=== PATIENT | male | born 1945 | race Caucasian/White ===

== ENCOUNTER 2020-02-28 18:15 | Observation (INO) | payer MEDICARE, SELFPAY ==
[2020-02-28] VITALS (10 sets, daily range): BP systolic 99–179; BP diastolic 50–81; PULSE 72–93; RESP 12–24; TEMP 36.7–37.6; O2SAT 93–97; BMI 24.3
--- NOTE | 2020-02-28 18:25 | DI.RAD.S_ITS ---
PROCEDURE: XR FINGER RT MIN 2V INDICATIONS: finger injury, infection TECHNIQUE: AP hand, 2 views of the right second finger(s) acquired. COMPARISON: None. FINDINGS: Bones: No fractures or dislocations. No suspicious bony lesions. No osseous erosive changes. No periosteal reaction. Severe first MCP joint osteoarthritis. Soft tissues: No suspicious soft tissue calcifications. No soft tissue gas IMPRESSION: No dm evidence of osteomyelitis. Plain film radiographs can be insensitive to osteomyelitis during the initial 15 days of the disease process. If there is clinical concern for osteomyelitis, then three-phase nuclear medicine bone scan should be considered for further evaluation. Dictated by: Halle Alicia MD, PhD on 02/28/2020 at 19:09 Approved by: Halle Alicia MD, PhD on 02/28/2020 at 19:10
[2020-02-28] MEDS: CEFAZOLIN 2 GM/100 ML FROZ.PIGGY IV ×3 (18:45→22:40)
[2020-02-28] MEDS: TET,DIPH,PERTUSS(ACELL),VAC/PF 0.5 ML SYRINGE IM (18:45)
[2020-02-28] MEDS: SODIUM CHLORIDE 0.9% 1,000 ML 125 ML IV (18:46)
--- NOTE | 2020-02-28 18:58 | ED.UPPEXIN ---
HPI - Extremity Injury (Upper) General Chief Complaint: Fever Stated Complaint: infected right finger Time Seen by Provider: 02/28/20 18:18 Source: patient Mode of arrival: Ambulatory Limitations: no limitations History of Present Illness HPI narrative: 74M former smoker with HTN, hyperlipidemia presents with a friend from [facility] with a painful, swollen, right index finger worsening since yesterday. 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 Yesterday he was using a blue prints trimmer for quite some time and denies a specific injury, or laceration, but noticed some swelling and pain of his finger and figured it was just from pulling on the trigger for so long. When he awoke today he felt a bit under the weather and noted that the finger had become swollen and painful with a fluid collection. He attempted to drain the fluid with a sterilized needle at home and a large amount of blood and pus came out. Over the day his finger became more swollen and redness was working to his hand. He developed read streaks up his arm. He denies fever or chills, but feels unwell. He doesn't have a terrible amount of pain, but admits that he has very little sensation and likely wouldn't feel pain. His tetanus will need to be updated. He last ate solids at breakfast time and had some liquids at about 1400. He takes no blood thinners. complaint: injury to: left and finger Onset (ago): day(s) Other Extremity Injury: Left: fingers Other injuries: none Handedness: right Place: home Severity: moderate Relieving factors: none Exacerbating factors: none Context: other Associated symptoms: weakness Treatments prior to arrival: bandage Related Data Home Medications Medication Instructions Recorded Confirmed Adult Low Dose Aspirin 81 mg PO DAILY 02/28/20 02/28/20 atorvastatin 40 mg PO QPM 02/28/20 02/28/20 carvedilol 6.25 mg PO DAILY 02/28/20 02/28/20 lisinopril 5 mg PO DAILY 02/28/20 02/28/20 Allergies Allergy/AdvReac Type Severity Reaction Status Date / Time No Known Drug Allergies Allergy Verified 02/28/20 18:31 Review of Systems Constitutional Constitutional: Denies chills, Reports fatigue, Denies fever(s), Denies frequent falls, Reports lethargy and Reports weakness Eyes Eyes: Denies change in vision, Denies eye discharge, Denies irritation and Denies loss of vision ENT Ears, Nose, Mouth, and Throat: Denies change in voice, Denies dizziness, Denies neck pain, Denies sore throat and Denies throat swelling Cardiovascular Cardiovascular: Denies chest pain, Denies irregular heart rhythm, Denies lightheadedness, Denies palpitations, Denies dyspnea, Denies dyspnea on exertion and Denies orthopnea Respiratory Respiratory: Denies cough, Denies dyspnea, Denies dyspnea on exertion and Denies wheezing Gastrointestinal Gastrointestinal: Denies abdominal pain, Denies change in bowel habits, Denies diarrhea, Denies nausea and Denies vomiting Musculoskeletal Musculoskeletal: Reports joint swelling, Denies neck pain and Denies numbness Integumentary/Breasts Skin/Breast: Denies pruritus, Reports erythema, Denies rash, Reports skin swelling and Denies wounds Neurologic Neurologic: Denies behavioral changes, Denies confusion, Denies dizziness, Denies frequent falls, Denies loss of vision, Denies numbness and Reports weakness Psychiatric Psychiatric: Denies anxiety, Denies behavioral changes, Denies confusion, Denies depression, Denies homicidal ideation and Denies suicidal ideation Endocrine Endocrine: Reports fatigue, Denies flushing and Denies palpitations Hematologic/Lymphatic Hematologic/Lymphatic: Denies easy bruising Allergic/Immunologic Allergic/Immunologic: Denies urticaria, Denies throat swelling and Denies wheezing Patient History Social History household members: significant other Smoking Status: Former smoker alcohol intake: current Smoking Status: Former smoker alcohol intake frequency: 0-2 drinks per day Substance Use Type: does not use Exam Narrative Exam Narrative: GENERAL: [74] year old patient appears stated age. Well-nourished, well-developed patient, in mild distress. HEAD: Atraumatic. Normocephalic. EYES: Pupils equal round and reactive. Extraocular motions intact. No scleral icterus. No injection or drainage. ENT: Nose without bleeding, purulent drainage. Throat without erythema, tonsillar hypertrophy or exudate. Airway patent. NECK: Trachea midline. Non tender CARDIOVASCULAR: Regular rate and rhythm without murmurs, gallops, or rubs. RESPIRATORY: Clear to auscultation. Breath sounds equal bilaterally. No wheezes, rales, or rhonchi. GASTROINTESTINAL: Abdomen soft, non-tender, nondistended. EXTREMITIES: Right index finger significantly swollen, held in flexion, tender on flexor surface. Erythema of entire finger, extending to 2nd MCP and dorsum of hand with associated lymphangitis. No swelling of palmar surface. There is a 2cm area of flattened bullae on volar surface, no obvious break in skin BACK: Nontender without deformity or crepitance. No flank tenderness. NEURO: AOx3. SKIN: No rash or erythema of visible areas Initial Vital Signs Initial Vital Signs: Vital Signs Temperature 99.6 F 02/28/20 18:20 Pulse Rate 84 02/28/20 18:20 Respiratory Rate 18 02/28/20 18:20 Blood Pressure 179/81 H 02/28/20 18:20 Pulse Oximetry 96 02/28/20 18:20 Course Orders Ordered: ED Orders 02/28/20 18:25 XR finger RT min 2V Stat 02/28/20 19:05 Basic Metabolic Panel Stat C-Reactive Protein Quant Stat Complete Blood Count AUTO DIFF Stat 02/28/20 19:40 Blood Culture Stat Atorvastatin Calcium (Lipitor) 40 mg PO QPM [facility] Carvedilol (Coreg) 6.25 mg PO DAILY [facility] Docusate Sodium (Colace) 100 mg PO BID [facility] Last Admin: 02/28/20 22:40 Dose: Not Given Documented by: SHAZIA Hydromorphone HCl (Dilaudid) 0.2 mg IV Q1H PRN PRN Reason: Pain, Severe (7-10) Cefazolin Sodium/Dextrose (Ancef) 2 gm in 100 mls @ 200 mls/hr IV Q8H [facility] Stop: 02/29/20 06:21 Last Infusion: 02/28/20 23:10 Dose: 0 mls/hr Documented by: Admin: 02/28/20 22:40 Dose: 200 mls/hr Documented by: SHAZIA Sodium Chloride (Normal Saline 0.9%) 250 mls @ 21 mls/hr IV Q24H PRN PRN Reason: Flush Lisinopril (Zestril) 5 mg PO DAILY [facility] Naloxone HCl (Narcan) 0.2 mg IV Q2MIN PRN PRN Reason: Opiate Reversal Non-Formulary Medication (Adult Low Dose Aspirin) 81 mg PO DAILY [facility] Ondansetron HCl (Zofran Odt) 4 mg PO Q4HR PRN PRN Reason: Nausea And Vomiting Oxycodone HCl (Percolone) 5 mg PO Q3HR PRN PRN Reason: Pain, Moderate (4-6) Discontinued Medications Bupivacaine HCl (Sensorcaine 0.5% (Pf)) 10 ml INJ NOW ONE Stop: 02/28/20 21:06 Last Admin: 02/28/20 21:05 Dose: 5 ml Documented by: GLADIS Diphtheria/Tetanus/Acell Pertussis (Adacel) 0.5 ml IM .ONCE ONE Stop: 02/28/20 18:26 Last Admin: 02/28/20 18:45 Dose: 0.5 ml Documented by: LIANE Fentanyl (Sublimaze) 0 mcg IV Q5M PRN PRN Reason: Pain, Moderate (4-6) Sodium Chloride (Normal Saline 0.9%) 1,000 mls @ 125 mls/hr IV CONT SOCORRO Last Infusion: 02/28/20 19:53 Dose: 0 mls/hr Documented by: Infusion: 02/28/20 19:29 Dose: 125 mls/hr Documented by: Admin: 02/28/20 18:46 Dose: 125 mls/hr Documented by: LIANE Cefazolin Sodium/Dextrose (Ancef) 2 gm in 100 mls @ 200 mls/hr IV NOW ONE Stop: 02/28/20 18:54 Last Infusion: 02/28/20 21:40 Dose: 200 mls/hr Documented by: Admin: 02/28/20 19:40 Dose: 200 mls/hr Documented by: Admin: 02/28/20 19:27 Dose: Not Given Documented by: LIANE Lactated Ringer's (Lactated Ringers) 1,000 mls @ 42 mls/hr IV CONT SOCORRO Last Infusion: 02/28/20 21:31 Dose: 0 mls/hr Documented by: Admin: 02/28/20 20:06 Dose: 42 mls/hr Documented by: LEROY Ondansetron HCl (Zofran) 4 mg IV NOW PRN PRN Reason: Nausea And Vomiting Consultations Consultation #1: early call to orthopedics given concern for early flexor tenosynovitis. Dr. Granger will see and take to OR at 2000. Vital Signs Vital signs: Vital Signs - 8 hr 02/28/20 18:20 Temperature 99.6 F Pulse Rate 84 Respiratory Rate 18 Blood Pressure 179/81 H Pulse Oximetry 96 MDM - Extremity Injury (Upper) Lab Data Result diagrams: 02/28/20 19:05 02/28/20 19:05 Labs: Lab Results 02/28/20 Range/Units 18:45 COVID-19 PCR Negative (Negative) Discharge Plan Departure Patient Disposition: Admitted to Surgery Clinical Impression: Flexor tenosynovitis of finger Discharge Date/Time: 02/28/20 19:35 Admit Date/Time: 02/28/20 19:02 Admit Provider: Neda Granger
[2020-02-28 19:16] LABS: Add Manual Diff / Slide Review NO; Basophils Absolute Auto 0 /uL (0-100); Basophils Percent Auto 0.4 % (0-2); Eosinophils Absolute Auto 0 /uL (0-450); Eosinophils Percent Auto 0.1 % (2-4); Hematocrit 42.6 % (41-53); Hemoglobin 14.6 g/dL (13.5-17.5); Lymphocytes Absolute Auto 900 /uL (1100-4500); Lymphocytes Percent Auto 7.8 % (25-40); Mean Corpuscular HGB Conc 34.4 % (30-36); Mean Corpuscular Hemoglobin 31.5 PG (26-34); Mean Corpuscular Volume 91.6 fL (80-100); Monocytes Absolute Auto 1400 /uL (0-900); Monocytes Percent Auto 11.7 % (3-14); Neutrophils Absolute Auto 9600 /uL (1500-7000); Platelet Count 170 X10^3/uL (150-400); Red Blood Cell Count 4.65 X10^6/uL (4.5-5.9); Red Cell Distribution Width 14.2 % (11.6-14.8)
[2020-02-28 19:31] LABS: BUN Creatinine Ratio 16.9 (6-22); Blood Urea Nitrogen 15 mg/dL (9-20); Calcium 9.1 mg/dL (8.4-10.2); Carbon Dioxide 25 mmol/L (22-32); Chloride 101 mmol/L (98-107); Estimated Glomerular Filt Rate > 60.0 mL/min (>60); Glucose 132 mg/dL (80-110); HEMOLYSIS < 15 (0-50); Potassium 4.1 mmol/L (3.4-5.1); Sodium 133 mmol/L (137-145)
--- NOTE | 2020-02-28 19:36 | PC.NURSE ---
2nd culture drawn by Cgay
[2020-02-28 19:49] LABS: COVID19 -Nasal RAPID Negative (Negative)
[2020-02-28] MEDS: LACTATED RINGERS 1,000 ML 42 ML IV (20:06)
--- NOTE | 2020-02-28 20:14 | SUR.HOLD ---
1939) received report from ER nurse regarding patient's visit to ER. Patient is GCS 15 and ambulatory with minimal assistance. Right hand is red, warm to touch, with streaking noted up the forearm. Slight swelling noted. Patient arrived to [facility] today from [facility].
--- NOTE | 2020-02-28 20:15 | P.HP_ITS ---
History of Present Illness History of Present Illness Date Patient Seen: 02/28/20 Time Patient Seen: 20:15 Date of Onset of Symptoms: 02/27/20 Chief complaint: infected right finger Narrative: Mr. Eaton is a 74 yo M with 2 day hx of right index finger swelling after repetitive trigger pull while using a mechanical device at home. He start ed to have increased swelling and a large fluid filled blister/abscess formed on the side of his index finger. He used a needle to puncture the abscess and he says significant amount of purulent material was drained from it. His finger continue to swell and throb. He presented to the ED for additional work up. Patient History Family & Social History Social History: household members significant other Prior Living Arrangements House Safety & Behavioral: Feels Safe in Current Yes Environment Tobacco & Substance use: Smoking Status Former smoker alcohol intake frequency 0-2 drinks per day Substance Use Type does not use Meds Home Medications and Allergies Home Medications Medication Instructions Recorded Confirmed Type Adult Low Dose Aspirin 81 mg PO DAILY 02/28/20 02/28/20 History atorvastatin 40 mg PO QPM 02/28/20 02/28/20 History carvedilol 6.25 mg PO DAILY 02/28/20 02/28/20 History lisinopril 5 mg PO DAILY 02/28/20 02/28/20 History Allergies Allergy/AdvReac Type Severity Reaction Status Date / Time No Known Drug Allergies Allergy Verified 02/28/20 18:31 Review of Systems Musculoskeletal Comments: Right index finger with significant swelling and redness. THe finger is slightly flexed. When passively extended, it causes severe pain to the palm side of the finger. There is a draining blister/abscess on the ulnar side of his infex finger at the level of DIP. 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 Exam Vital Signs (past 8 hours): - 02/28/20 18:20 02/28/20 19:13 02/28/20 19:40 Temperature 99.6 F 99.2 F Pulse Rate 84 74 76 Respiratory Rate 18 24 20 Blood Pressure 179/81 H 135/72 Blood Pressure [Left Arm] 131/64 Pulse Oximetry 96 94 95 Oxygen Delivery Method Room Air Objective Labs Result Diagrams: 02/28/20 19:05 02/28/20 19:05 Labs: Laboratory Results - last 24 hr 02/28/20 02/28/20 02/28/20 18:45 19:05 19:05 WBC 12.0 H RBC 4.65 Hgb 14.6 Hct 42.6 MCV 91.6 MCH 31.5 MCHC 34.4 RDW 14.2 Plt Count 170 Neut % (Auto) 80.0 H Lymph % (Auto) 7.8 L [place] % (Auto) 11.7 Eos % (Auto) 0.1 L Baso % (Auto) 0.4 Neut # (Auto) 9600 H Lymph # (Auto) 900 L [place] # (Auto) 1400 H Eos # (Auto) 0 Baso # (Auto) 0 Sodium 133 L Potassium 4.1 Chloride 101 Carbon Dioxide 25 BUN 15 Creatinine 0.89 Estimated GFR > 60.0 BUN/Creatinine Ratio 16.9 Glucose 132 H Calcium 9.1 C-Reactive Protein 7.0 H COVID-19 PCR Negative Assessment & Plan Assessment & Plan narrative: 2 day hx of of worsening right index finger swelling, pain and pain on the volar/palm side of his finger/hand with progressive red streak on the volar part of his forearm and traveling more proximally. Patient has clinical diagnosis of infected flextor tenosynovitis with progressive worsening of his symptoms. I discussed my findings with him. I recommended emergent I&D of his flexor tendon sheath. He understands and will proceed emergently.
--- NOTE | 2020-02-28 20:53 | SUR.OPER ---
Supine on padded OR bed, head on pillow, left arms secured on padded arm boards at <90 degrees abduction, right arm on arm table under control of surgeon, legs uncrossed, safety belt at thigh, tape over blanket over lower legs.
[2020-02-28] MEDS: BUPIVACAINE 0.5% (PF) VIAL 10 ML INJ (21:05)
--- NOTE | 2020-02-28 21:19 | P.OP_ITS ---
Operative Date/Time/Diagnoses Date of procedure: 02/28/20 Time of procedure: 20:19 Pre-op diagnosis: 1. Right infex finger flexor tenosynovitis Post-op diagnosis: same Procedure & Clinicians Procedure: 1. Right index finger flexor sheath open debridement 2. Closure of wound Same procedure as scheduled: Yes Indications: Mr. Eaton is a 74 yo M with 2 days hx of worsening swelling, increased pain with flexion in the volar side of his finger and palm of his hand. After discussing risks and benefits of surgery, pt was taken to surgery sadie rgently for I&D. Surgeon: Neda Granger Click Yes if Unassisted: Yes Anesthesia Type: General Operative Notes Closure Type: primary Estimated Blood Loss (mL): 2 Blood products transfused: none Tourniquet time (min): 25 Procedure in detail: After informed consent was obtained and placed in the chart, patient's surgical site was marked. Patient was taken to the operating room and placed in a supine position. A tourniquet was placed on patient's right upper arm. Arm table was attached to the operating bed patient's right arm was placed onto the arm table. Patient's right hand was prepped and draped in the sterile fashion from the fingertips all the way to his upper arm. Time-out was performed and this time. Tourniquet was inflated to 250 mm mercury. Surgical marker was used to nallely out the patient's incision on his right index finger. A zigzag volar approach was performed with incision lines crossing his flexor crease add or greater than 90 degree angle to minimize risk of skin corner necrosis. The incision started from just distal to the DIP flexor crease and extended towards the MCP flexor crease and exposing his flexor tendon sheath to his right index finger. Was significant amount of purulent material was in his subcutaneous layer from material leaking out of the flexor sheath. Culture swab was used to take cultures from the wound for both Gram stain culture and sensitivity. The flexor sheath itself also found to have defects on the volar aspect connecting to the subcutaneous area of pururlent material collection. After exposing the proximal and distal and of the flexor sheaths to his index finger, a Angiocath was used to irrigate the flexor sheath copiously with sterile normal saline. The proximal portion of his flexor tendon sheath was explored no additional pure no material was found proximal to his palmar crease. Unhealthy tissue including skin subcutaneous tissue and flexor tendon sheath as well as ligaments was e xcised in order to prevent recurrence of his infection. The skin was closed with 3-0 nylon suture a running fashion. Xeroform and sterile dressing was applied the patient's incision. Patient's right hand including the finger was placed into a sterile dressing. Tourniquet was then deflated at this time. Patient will be admitted to the inpatient hospital placed on IV antibiotics while wait for his culture results return. Patient will be discharged on oral antibiotics once his culture and sensitivity returns from the lab. Complications: none Post-operative Condition: stable Disposition: observation Plan for aftercare: Admit to observation for IV antibiotics
--- NOTE | 2020-02-28 23:12 | PC.NURSE ---
some erythema to his RUE. dressing cdi. RUE elevated. he had some chicken noodle soup for dinner. pt tolerated well. no n/v. safety check. call light in reach. bed alarm active. oriented pt to the room.
[2020-02-29] VITALS: BP 112/63; PULSE 74; RESP 18; TEMP 37.4; O2SAT 98
[2020-02-29] MEDS: CEFAZOLIN 2 GM/100 ML FROZ.PIGGY IV (05:16)
[2020-02-29] MEDS: IBUPROFEN 400 MG TABLET PO (05:26)
--- NOTE | 2020-02-29 06:09 | PC.NURSE ---
Pt doing well. Minimal pain, given advil. Redness to arm is subsiding from previous border. Able to wiggle fingers. CMS+
[2020-02-29 06:18] VITALS: BP 122/66; PULSE 78; RESP 16; TEMP 37.1; O2SAT 96
[2020-02-29 07:56] VITALS: BP 122/66
[2020-02-29] MEDS: lisinopriL 5 MG TABLET PO (07:56)
[2020-02-29 07:57] VITALS: BP 122/66
[2020-02-29] MEDS: carvediloL 6.25 MG TABLET PO (07:57)
[2020-02-29 08:05] VITALS: BP 133/72; PULSE 70; RESP 16; TEMP 36.9; O2SAT 96
--- NOTE | 2020-02-29 11:40 | P.PN_ITS ---
Exam Vital Signs (past 8 hours): - 02/29/20 06:18 02/29/20 07:56 02/29/20 07:57 Temperature 98.8 F Pulse Rate 78 Respiratory Rate 16 Blood Pressure 122/66 122/66 122/66 Pulse Oximetry 96 02/29/20 08:05 Temperature 98.5 F Pulse Rate 70 Respiratory Rate 16 Blood Pressure 133/72 Pulse Oximetry 96 Oxygen Delivery Method Room Air Oxygen Flow Rate 0 Objective Labs Result Diagrams: 02/28/20 19:05 02/28/20 19:05 Labs: Laboratory Results - last 24 hr 02/28/20 02/28/20 02/28/20 18:45 19:05 19:05 WBC 12.0 H RBC 4.65 Hgb 14.6 Hct 42.6 MCV 91.6 MCH 31.5 MCHC 34.4 RDW 14.2 Plt Count 170 Neut % (Auto) 80.0 H Lymph % (Auto) 7.8 L [place] % (Auto) 11.7 Eos % (Auto) 0.1 L Baso % (Auto) 0.4 Neut # (Auto) 9600 H Lymph # (Auto) 900 L [place] # (Auto) 1400 H Eos # (Auto) 0 Baso # (Auto) 0 Sodium 133 L Potassium 4.1 Chloride 101 Carbon Dioxide 25 BUN 15 Creatinine 0.89 Estimated GFR > 60.0 BUN/Creatinine Ratio 16.9 Glucose 132 H Calcium 9.1 C-Reactive Protein 7.0 H COVID-19 PCR Negative Assessment & Plan Assessment & Plan narrative: POD#1 s/p I&D of right index finger flexor tenosynovitis. Patient is feeling well. Finger is well perfused. Will discharge today with oral antibiotics. Follow up in 2 weeks.
[2020-02-29 11:55] VITALS: BP 103/57; PULSE 56; RESP 16; TEMP 36.8; O2SAT 96
--- NOTE | 2020-02-29 12:43 | PC.NURSE ---
Addendum entered by Katarina Nelson R.N. 02/29/20 13:38: Pt out via w/c by [employer] to [employer]i with all belongings. Original Note: Pt is dressed and ready for discharge home on the [facility]. IV has been removed. Went over d/c instructions with Pt-discussed d/c meds, time of last dose, reviewed stroke education, s/s of infection and when to call MD. Pt denies further questions and will be taken out to [employer] at 1335 as requested by Pt.
--- NOTE | 2020-02-29 16:06 | CM.DANOTE ---
Discharge Planning/Care Management DCP: assessment: case received, EMR reviewed. Discussed in Team Rounds. Pt is a 74 year old male who admitted last evening to Surgeon: Dr. Granger He was taken urgently to surgery later in evening for an open debridement: infected R finger Payer: [employer] PCP: listed as Dr. White Admission status: OBS: per KEL Morris Pt lives on [address]. Planned to check in later with pt to see if anything needed for d/c. A check in showed that Dr. Granger did see and ok'd him for a d/c to home setting and on oral anticitics. He left for [place] to [place] by [employer] taxi/part of [employer] transport services at 1335. No d/c needs for CM/DCPlanning were identified by the care team members. CM Discharge Assessment Start: 02/29/20 16:04 Freq: Status: Active Protocol: Document 02/29/20 16:04 IT (Rec: 02/29/20 16:05 IT [id number]) Discharge Planning Assessment Advance Directives? Yes History Provided By Medical Record Prior Living Arrangements House Household Members significant other Comment Emerald Grider Independent with ADL's Yes Is patient alert and oriented? Yes Review Status In Process
== END 2020-02-29 13:39 | disposition home or self-care (01) ==
LOC: ED 18:35 → AC 19:03
PROVIDERS: Admitting Provider Orthopaedic Surgery Orthopaedic Surgery of the Spine; Emergency Provider Emergency Medicine; Family Provider Family Medicine; PCP Family Medicine; Referring Provider Emergency Medicine; Visit Provider Orthopaedic Surgery Orthopaedic Surgery of the Spine
PROC: (CPT 26020; principal; 2020-02-28 19:50)
DX: M65.141 Other infective (teno)synovitis, right hand (principal); R50.9 Fever, unspecified; I25.10 Atherosclerotic heart disease of native coronary artery without angina pectoris; I10 Essential (primary) hypertension; Z95.1 Presence of aortocoronary bypass graft; Z11.59 Encounter for screening for other viral diseases
CPT/HCPCS: 26020; 36415; 73140; 80048; 85025; 86140; 87040; 87070; 87075; 87077; 87147; 87186; 87205; 87635; 90471; 96361; 96365; 99284; G0378; 90715; J0690; J2405; J2704; J3010

== ENCOUNTER → 2021-10-13 10:18 | Outpatient (CLI) | payer MEDICARE, SELFPAY ==
[2020-02-28 22:01] VITALS: BMI 24.3
[2021-10-13 18:51] LABS: Add Manual Diff / Slide Review NO; Basophils Absolute Auto 0 /uL (0-100); Basophils Percent Auto 1.1 % (0-2); Eosinophils Absolute Auto 100 /uL (0-450); Hematocrit 45.3 % (41-53); Hemoglobin 15.4 g/dL (13.5-17.5); Lymphocytes Absolute Auto 1200 /uL (1100-4500); Lymphocytes Percent Auto 29.8 % (25-40); Mean Corpuscular HGB Conc 34.1 % (30-36); Mean Corpuscular Hemoglobin 31.2 PG (26-34); Mean Corpuscular Volume 91.6 fL (80-100); Monocytes Absolute Auto 600 /uL (0-900); Monocytes Percent Auto 14.9 % (3-14); Neutrophils Absolute Auto 2100 /uL (1500-7000); Neutrophils Percent Auto 52.2 % (50-75); Platelet Count 173 X10^3/uL (150-400); Red Blood Cell Count 4.95 X10^6/uL (4.5-5.9); Red Cell Distribution Width 14.1 % (11.6-14.8); White Blood Cell Count 4.1 X10^3/uL (4.5-11.0)
[2021-10-13 18:54] LABS: HEMOLYSIS 26 (0-50)
[2021-10-13 19:01] LABS: Alanine Aminotransferase 18 IU/L (<50); Albumin 4.1 g/dL (3.5-5.0); Albumin Globulin Ratio 1.5 (1.0-2.8); Alkaline Phosphatase 66 U/L (38-126); Aspartate Aminotransferase 30 IU/L (17-59); Bilirubin Total 0.9 mg/dL (0.2-1.3); Blood Urea Nitrogen 18 mg/dL (9-20); Calcium 9.6 mg/dL (8.4-10.2); Carbon Dioxide 31 mmol/L (22-32); Chloride 104 mmol/L (98-107); Cholesterol 180 mg/dL (140-199); Estimated Glomerular Filt Rate > 60.0 mL/min (>60); Globulin 2.7 g/dL (1.7-4.1); Glucose 98 mg/dL (80-110); HDL Cholesterol 102 mg/dL (40-60); LDL Cholesterol Calculated 58 mg/dL (<100); Potassium 4.9 mmol/L (3.4-5.1); Sodium 139 mmol/L (137-145); Total Protein 6.8 g/dL (6.3-8.2); Triglycerides 100 mg/dL (35-150)
[2021-10-13 19:33] LABS: Prostate Specific Antigen 0.447 ng/mL (0.10-4.00)
== END ==
PROVIDERS: Family Provider Family Medicine; PCP Family Medicine; Visit Provider Physician Assistant
DX: Z12.5 Encounter for screening for malignant neoplasm of prostate (principal); I10 Essential (primary) hypertension; Z12.11 Encounter for screening for malignant neoplasm of colon
CPT/HCPCS: 80053; 80061; 84153; 85025; G0103

== ENCOUNTER → 2022-04-23 10:01 | Outpatient (CLI) | payer MEDICARE, SELFPAY ==
[2020-02-28 22:01] VITALS: BMI 24.3
[2022-04-23 20:42] LABS: Add Manual Diff / Slide Review NO; Basophils Absolute Auto 0 /uL (0-100); Basophils Percent Auto 0.8 % (0-2); Eosinophils Absolute Auto 100 /uL (0-450); Eosinophils Percent Auto 1.5 % (2-4); Hematocrit 44.5 % (41-53); Hemoglobin 14.9 g/dL (13.5-17.5); Lymphocytes Absolute Auto 1100 /uL (1100-4500); Lymphocytes Percent Auto 22.5 % (25-40); Mean Corpuscular HGB Conc 33.5 % (30-36); Mean Corpuscular Hemoglobin 30.8 PG (26-34); Mean Corpuscular Volume 91.9 fL (80-100); Monocytes Absolute Auto 700 /uL (0-900); Monocytes Percent Auto 13.4 % (3-14); Neutrophils Absolute Auto 3000 /uL (1500-7000); Neutrophils Percent Auto 61.8 % (50-75); Platelet Count 201 X10^3/uL (150-400); Red Blood Cell Count 4.84 X10^6/uL (4.5-5.9); Red Cell Distribution Width 14.2 % (11.6-14.8); White Blood Cell Count 4.9 X10^3/uL (4.5-11.0)
[2022-04-23 21:27] LABS: HIV 1 & 2 Ab/Ag 4th Gen Combo NEGATIVE (NEGATIVE); Hep C Virus Ab w/Reflex Quant NEGATIVE s/c (NEGATIVE)
[2022-04-26 05:54] LABS: Chlamydia trachomatis NAA Negative (Negative); Neisseria gonorrhoeae NAA Negative (Negative)
== END ==
PROVIDERS: Family Provider Family Medicine; PCP Physician Assistant; Visit Provider Family Medicine
DX: I10 Essential (primary) hypertension (principal); Z11.3 Encounter for screening for infections with a predominantly sexual mode of transmission; D72.819 Decreased white blood cell count, unspecified
CPT/HCPCS: 85025; 86803; 87389; 87491; 87591

== ENCOUNTER → 2022-11-04 13:03 | Outpatient (CLI) | payer MEDICARE, MEDICAID, SELFPAY ==
[2020-02-28 22:01] VITALS: BMI 24.3
[2022-11-04 19:31] LABS: Add Manual Diff / Slide Review NO; Basophils Absolute Auto 100 /uL (0-100); Eosinophils Absolute Auto 200 /uL (0-450); Eosinophils Percent Auto 3.4 % (2-4); Lymphocytes Absolute Auto 1500 /uL (1100-4500); Lymphocytes Percent Auto 26.4 % (25-40); Mean Corpuscular HGB Conc 33.2 % (30-36); Mean Corpuscular Hemoglobin 30.3 PG (26-34); Mean Corpuscular Volume 91.2 fL (80-100); Monocytes Absolute Auto 600 /uL (0-900); Monocytes Percent Auto 9.8 % (3-14); Neutrophils Absolute Auto 3400 /uL (1500-7000); Neutrophils Percent Auto 59.4 % (50-75); Platelet Count 205 X10^3/uL (150-400); Red Blood Cell Count 4.61 X10^6/uL (4.5-5.9); Red Cell Distribution Width 14.2 % (11.6-14.8); White Blood Cell Count 5.7 X10^3/uL (4.5-11.0)
[2022-11-04 19:37] LABS: Alanine Aminotransferase 20 IU/L (<50); Albumin 3.7 g/dL (3.5-5.0); Albumin Globulin Ratio 1.4 (1.0-2.8); Alkaline Phosphatase 62 U/L (38-126); Aspartate Aminotransferase 25 IU/L (17-59); BUN Creatinine Ratio 20.8 (6-22); Bilirubin Total 0.6 mg/dL (0.2-1.3); Blood Urea Nitrogen 20 mg/dL (9-20); Calcium 9.2 mg/dL (8.4-10.2); Carbon Dioxide 31 mmol/L (22-32); Chloride 100 mmol/L (98-107); Estimated Glomerular Filt Rate > 60 mL/min (>60); Globulin 2.6 g/dL (1.7-4.1); Glucose 79 mg/dL (80-110); HEMOLYSIS < 15 (0-50); Potassium 4.9 mmol/L (3.4-5.1); Sodium 138 mmol/L (137-145); Total Protein 6.3 g/dL (6.3-8.2)
[2022-11-04 20:07] LABS: Prostate Specific Antigen Scrn 0.577 ng/mL (0.1-4.0)
== END ==
PROVIDERS: Family Provider Family Medicine; PCP Physician Assistant; Visit Provider Physician Assistant
DX: G62.9 Polyneuropathy, unspecified (principal); Z12.5 Encounter for screening for malignant neoplasm of prostate; R05.2 Subacute cough
CPT/HCPCS: 80053; 85025; G0103

== ENCOUNTER → 2023-12-14 09:31 | Outpatient (CLI) | payer MEDICARE, MEDICAID, SELFPAY ==
[2020-02-28 22:01] VITALS: BMI 24.3
[2023-12-14 19:08] LABS: Add Manual Diff / Slide Review NO; Basophils Absolute Auto 0 /uL (0-100); Basophils Percent Auto 0.9 % (0-2); Eosinophils Absolute Auto 100 /uL (0-450); Eosinophils Percent Auto 2.9 % (2-4); Hematocrit 41.8 % (41-53); Hemoglobin 14.1 g/dL (13.5-17.5); Lymphocytes Absolute Auto 1400 /uL (1100-4500); Lymphocytes Percent Auto 30.3 % (25-40); Mean Corpuscular HGB Conc 33.7 % (30-36); Mean Corpuscular Hemoglobin 31.3 PG (26-34); Mean Corpuscular Volume 92.9 fL (80-100); Monocytes Absolute Auto 700 /uL (0-900); Monocytes Percent Auto 15.4 % (3-14); Neutrophils Absolute Auto 2300 /uL (1500-7000); Neutrophils Percent Auto 50.5 % (50-75); Platelet Count 167 X10^3/uL (150-400); Red Cell Distribution Width 13.8 % (11.6-14.8); White Blood Cell Count 4.5 X10^3/uL (4.5-11.0)
[2023-12-14 19:32] LABS: Alanine Aminotransferase 20 IU/L (<50); Albumin 3.8 g/dL (3.5-5.0); Albumin Globulin Ratio 1.5 (1.0-2.8); Alkaline Phosphatase 60 U/L (38-126); Aspartate Aminotransferase 35 IU/L (17-59); BUN Creatinine Ratio 24.8 (6-22); Blood Urea Nitrogen 25 mg/dL (9-20); Calcium 9.4 mg/dL (8.4-10.2); Carbon Dioxide 31 mmol/L (22-32); Chloride 104 mmol/L (98-107); Cholesterol 159 mg/dL (140-199); Estimated Glomerular Filt Rate > 60 mL/min (>60); Globulin 2.6 g/dL (1.7-4.1); Glucose 104 mg/dL (80-110); HDL Cholesterol 69 mg/dL (40-60); HEMOLYSIS < 15 (0-50); LDL Cholesterol Calculated 78 mg/dL (<100); Potassium 4.9 mmol/L (3.4-5.1); Sodium 136 mmol/L (137-145); Total Protein 6.4 g/dL (6.3-8.2); Triglycerides 61 mg/dL (35-150)
[2023-12-14 19:57] LABS: Prostate Specific Antigen Scrn 0.715 ng/mL (0.1-4.0)
[2023-12-14 19:59] LABS: TSH w/ Reflex to FT4 1.22 uIU/mL (0.47-4.68)
== END ==
PROVIDERS: Family Provider Family Medicine; PCP Physician Assistant Medical; Visit Provider Physician Assistant Medical
DX: Z12.5 Encounter for screening for malignant neoplasm of prostate (principal); G62.9 Polyneuropathy, unspecified; E78.00 Pure hypercholesterolemia, unspecified; I10 Essential (primary) hypertension; R63.4 Abnormal weight loss
CPT/HCPCS: 80053; 80061; 84443; 85025; G0103

== ENCOUNTER → 2023-12-24 11:05 | Outpatient (CLI) | payer MEDICARE, MEDICAID, SELFPAY ==
[2020-02-28 22:01] VITALS: BMI 24.3
--- NOTE | 2023-12-24 11:08 | DI.RAD.S_ITS ---
PROCEDURE: XR CHEST 2V INDICATIONS: Cough, evaluate for pneumonia TECHNIQUE: 2 views of the chest were acquired. COMPARISON: [facility] ([place] CR, XR CHEST 2V, 10/23/2022, 15:30. FINDINGS: Surgical changes and devices: Sternotomy. Lungs and pleura: Lungs are clear. No pleural effusions or pneumothorax. Mediastinum: Mediastinal contours are normal. Heart size is normal. Bones and chest wall: No suspicious bony abnormalities. Soft tissues appear unremarkable. IMPRESSION: No acute cardiopulmonary abnormality is seen. Dictated by: Gulshan Crane M.D. on 12/24/2023 at 12:54 Approved by: Gulshan Crane M.D. on 12/24/2023 at 12:55
== END ==
PROVIDERS: Family Provider Family Medicine; Referring Provider Internal Medicine Critical Care Medicine; Visit Provider Internal Medicine Critical Care Medicine
DX: J41.8 Mixed simple and mucopurulent chronic bronchitis (principal); R05.3 Chronic cough
CPT/HCPCS: 71046; 99214

== ENCOUNTER → 2024-12-22 08:36 | Outpatient (CLI) | payer MEDICARE, MEDICAID, SELFPAY ==
[2020-02-28 22:01] VITALS: BMI 24.3
[2024-12-22 19:02] LABS: Alanine Aminotransferase 22 IU/L (<50); Albumin 4.6 g/dL (3.5-5.0); Albumin Globulin Ratio 1.8 (1.0-2.8); Alkaline Phosphatase 62 U/L (38-126); Aspartate Aminotransferase 34 IU/L (17-59); BUN Creatinine Ratio 18.8 (6-22); Bilirubin Total 1.2 mg/dL (0.2-1.3); Blood Urea Nitrogen 21 mg/dL (9-20); Calcium 10.1 mg/dL (8.4-10.2); Carbon Dioxide 29 mmol/L (22-32); Chloride 102 mmol/L (98-107); Cholesterol 198 mg/dL (140-199); Estimated Glomerular Filt Rate > 60 mL/min (>60); Globulin 2.6 g/dL (1.7-4.1); Glucose 105 mg/dL (80-110); HDL Cholesterol 91 mg/dL (40-60); HEMOLYSIS < 15 (0-50); LDL Cholesterol Calculated 87 mg/dL (<100); Potassium 4.5 mmol/L (3.4-5.1); Sodium 139 mmol/L (137-145); Total Protein 7.2 g/dL (6.3-8.2); Triglycerides 101 mg/dL (35-150)
[2024-12-22 19:27] LABS: Prostate Specific Antigen Scrn 0.663 ng/mL (0.1-4.0)
== END ==
PROVIDERS: PCP Physician Assistant Medical; Visit Provider Physician Assistant Medical
DX: E78.00 Pure hypercholesterolemia, unspecified (principal); Z12.5 Encounter for screening for malignant neoplasm of prostate; R63.4 Abnormal weight loss; I10 Essential (primary) hypertension
CPT/HCPCS: 80053; 80061; G0103